=== PATIENT | male | born 1985 | race Caucasian/White ===

== ENCOUNTER 2019-08-13 02:42 | Inpatient (IN) | payer SELFPAY ==
--- NOTE | 2019-08-13 03:48 | PDOC ---
History of Present Illness - General Chief Complaint: Pain, Acute Stated Complaint: ABD PAIN Time Seen by Provider: 08/13/19 03:48 - History of Present Illness Initial Comments: HPI: 34yo M with PMH of alcohol abuse (about ten beers per day) presenting with abdominal pain since yesterday. Patient has never had pain like this before. The pain is described as "dull" and rated 10/10. He has not taken anything for his pain at home. One episode of vomiting yesterday in which he saw a small amount of red. Last bowel movement was about two hours prior to arrival and was a normal formed brown stool without blood. Has eaten spicy foods recently. Patient does not have a primary care doctor. Bath some chest pain when he woke up tonight but the pain went away on its own. No surgical history. Denies urinary symptoms. Had two beers before coming to the ED and feeling shaky like he is withdrawing. Been under significant stress lately due to concern for an ailing family member such that he has been drinking significant amounts of alcohol. No fevers, but endorses chills. PCP: none ROS: Constitutional: no fever, +chills HEENT: no throat pain, no dysphagia Cardiovascular: +chest pain, no palpitations Respiratory: no cough, no shortness of breath Gastrointestinal: +abdominal pain, +vomiting Genitourinary: no dysuria, no hematuria Musculoskeletal: no myalgia, no arthralgia Skin: no rash, no itching Neurologic: no headache, no weakness Psych: no agitation, no anxiety PE: General: Awake, alert, and fully oriented, tremulous and diaphoretic Head: No signs of trauma Eyes: EOMI, sclera anicteric ENT: Moist mucus membranes Neck: Normal ROM, supple Lungs: Lungs clear, Normal breath sounds Cardio: Regular rhythm, S1 and S2 present Abdomen: Diffusely tender to palpation with significant guarding Extremities: Normal range of motion, Distal pulses present SKIN: Warm, Dry, normal turgor Neurologic: Cranial nerves II through XII grossly intact. Normal speech ED Course/MDM: DDX including but not limited to alcoholic gastritis, pancreatitis, peptic ulcer , ACS Labs, EKG CTAP with IV contrast Morphine Zofran Fluids Pepcid CIWA 14, 2mg ativan ordered 08/13/19 03:48 EKG: rate 73, Qtc 458, NSR CBC WBC 3.9 K/mm3 (4.0-10.0) L 08/13/19 04:39 RBC 3.96 M/mm3 (4.00-5.60) L 08/13/19 04:39 Hgb 13.0 GM/dL (11.7-16.9) 08/13/19 04:39 Hct 36.8 % (35.4-49) 08/13/19 04:39 MCV 93.0 fl (80-96) 08/13/19 04:39 MCH 32.8 pg (25.7-33.7) 08/13/19 04:39 MCHC 35.2 g/dl (32.0-35.9) 08/13/19 04:39 RDW 13.4 % (11.9-15.9) 08/13/19 04:39 Plt Count 152 K/MM3 (134-434) 08/13/19 04:39 MPV 6.7 fl (7.5-11.1) L 08/13/19 04:39 Absolute Neuts (auto) 2.1 K/mm3 (1.5-8.0) 08/13/19 04:39 Neutrophils % 54.0 % (42.8-82.8) 08/13/19 04:39 Lymphocytes % 33.9 % (8-40) 08/13/19 04:39 Monocytes % 10.3 % (3.8-10.2) H 08/13/19 04:39 Eosinophils % 0.8 % (0-4.5) 08/13/19 04:39 Basophils % 1.0 % (0-2.0) 08/13/19 04:39 Nucleated RBC % 0 % (0-0) 08/13/19 04:39 No leukocytosis CMP Sodium 139 mmol/L (136-145) 08/13/19 04:39 Potassium 3.8 mmol/L (3.5-5.1) 08/13/19 04:39 Chloride 106 mmol/L (98-107) 08/13/19 04:39 Carbon Dioxide 25 mmol/L (21-32) 08/13/19 04:39 Anion Gap 8 MMOL/L (8-16) 08/13/19 04:39 BUN 5.2 mg/dL (7-18) L 08/13/19 04:39 Creatinine 0.6 mg/dL (0.55-1.3) 08/13/19 04:39 Est GFR (CKD-EPI)AfAm 149.92 08/13/19 04:39 Est GFR (CKD-EPI)NonAf 129.35 08/13/19 04:39 Random Glucose 91 mg/dL (74-106) 08/13/19 04:39 Calcium 8.1 mg/dL (8.5-10.1) L 08/13/19 04:39 Total Bilirubin 0.3 mg/dL (0.2-1) 08/13/19 04:39 AST 100 U/L (15-37) H 08/13/19 04:39 ALT 89 U/L (13-61) H 08/13/19 04:39 Alkaline Phosphatase 126 U/L (45-117) H 08/13/19 04:39 Troponin I < 0.02 ng/ml (0.00-0.05) 08/13/19 04:39 Total Protein 8.6 g/dl (6.4-8.2) H 08/13/19 04:39 Albumin 3.3 g/dl (3.4-5.0) L 08/13/19 04:39 Lipase 215 U/L (73-393) 08/13/19 04:39 Electrolyltes unremarkable Cr normal ALT and AST elevated Tpn undetectable Lipase normal 08/13/19 06:08 CT as reported by imaging lamination technician: "EXAM: CT ABDOMEN AND PELVIS WITH CONTRAST Thickened bladder wall, correlate clinically for cystitis. No bowel obstruction or inflammation. No free fluid or free air. Normal appendix. Unremarkable spleen, stomach, pancreas, kidneys and gallbladder. Steatosis liver. One or more of the following dose reduction techniques were used: automated exposure control, adjustment of the mA and/or kV according to patient size, use of iterative reconstructive technique. THIS DOCUMENT HAS BEEN ELECTRONICALLY SIGNED Graciela Castillo M.D." Patient still with significant abdominal tenderness; concern for inability to tolerate po puts patient at risk for acute withdrawal Plan for admission Patient signed out to Dr. Pemberton and day team Past History - Past Medical History Allergies/Adverse Reactions: Allergies Allergy/AdvReac Type Severity Reaction Status Date / Time No Known Allergies Allergy Verified 08/13/19 03:11 Home Medications: Ambulatory Orders Ibuprofen [Motrin -] 600 mg PO TID PRN #90 tablet 07/01/19 COPD: No - Immunization History Immunization Up to Date: Yes - Psycho Social/Smoking Cessation Hx Smoking History: Never smoked Have you smoked in the past 12 months: No Hx Alcohol Use: No Drug/Substance Use Hx: No *Physical Exam - Vital Signs Last Vital Signs Temp Pulse Resp BP Pulse Ox 98.0 F 87 16 130/90 99 08/13/19 03:11 08/13/19 03:11 08/13/19 03:11 08/13/19 03:11 08/13/19 03:11 ED Treatment Course - LABORATORY CBC & Chemistry Diagram: 08/13/19 04:39 08/13/19 04:39 Discharge - Discharge Information Problems reviewed: Yes Clinical Impression/Diagnosis: Alcoholic gastritis Qualifiers: Chronicity: acute Gastritis bleeding: presence of bleeding unspecified Qualified Code(s): K29.20 - Alcoholic gastritis without bleeding Condition: Stable - Follow up/Referral - Patient Discharge Instructions - Post Discharge Activity CIWA Nausea/Vomitin Muscle Tremors: 3 Anxiety: 0-No Anxiety, at Ease Agitation: 0-Normal Activity Paroxysmal Sweats: 3 Orientation: 0-Oriented Tacttile Disturbances: 1-Very Mild Itch/Numbness Auditory Disturbances: 0-None Visual Disturbances: 2-Mild Sensitivity Headache: 0-None Present CIWA-Ar Total Score: 14
[2019-08-13] MEDS ORDERED: SODIUM CHLORIDE 1,000 ML IV STA (04:18)
[2019-08-13] MEDS ORDERED: ONDANSETRON 4 MG/2 ML VIAL IVPUSH ONE (04:18)
[2019-08-13] MEDS ORDERED: morphine CARPU-JECT 4 MG/1 ML DISP.SYRIN IVPUSH ONE (04:18)
[2019-08-13] MEDS ORDERED: FAMOTIDINE 20 MG/50 ML IVPB 20 MG/50 ML MG IVPB ONE (04:19)
[2019-08-13] MEDS ORDERED: morphine SULFATE 4 MG/ML VIAL ONE (04:42)
--- NOTE | 2019-08-13 04:42 | PDOC ---
Attending Attestation - Resident Resident Name: Claudia Caraballo - ED Attending Attestation I have performed the following: I have examined & evaluated the patient, The case was reviewed & discussed with the resident, I agree w/resident's findings & plan - HPI HPI: 08/13/19 05:21 see resident hpi - Physicial Exam PE: 08/13/19 05:21 see resident exam - Medical Decision Making 08/13/19 05:21 34-year-old male with history of alcohol use disorder complaining of epigastric abdominal pain radiating to the lower abdomen Patient states he is also feeling shaky Labs, EKG and CT scan of the abdomen and pelvis IV fluid normal saline, Ativan 2 mg IV push for impending withdrawal with tongue fasciculations and tremor present We will plan for admission pending CT scan results
[2019-08-13] MEDS ORDERED: ONDANSETRON 4 MG/2 ML VIAL ONE (04:50)
[2019-08-13 05:01] LABS: EOS % 0.8 % (0-4.5); HEMATOCRIT 36.8 % (35.4-49); LYMPH % 33.9 % (8-40); MCH 32.8 pg (25.7-33.7); MCHC 35.2 g/dl (32.0-35.9); MEAN PLT VOLUME 6.7 fl (7.5-11.1); MONO % 10.3 % (3.8-10.2); PLATELET COUNT 152 K/MM3 (134-434); RBC 3.96 M/mm3 (4.00-5.60); RDW 13.4 % (11.9-15.9); WHITE BLOOD COUNT 3.9 K/mm3 (4.0-10.0)
[2019-08-13 05:27] LABS: ALBUMIN 3.3 g/dl (3.4-5.0); BILIRUBIN,TOTAL 0.3 mg/dL (0.2-1); BLOOD UREA NITROGEN 5.2 mg/dL (7-18); CALCIUM 8.1 mg/dL (8.5-10.1); CREATININE 0.6 mg/dL (0.55-1.3); POTASSIUM 3.8 mmol/L (3.5-5.1); TOT PROT 8.6 g/dl (6.4-8.2)
[2019-08-13] MEDS ORDERED: LORazepam 2 MG/ML SDV VIAL ONE (06:45)
--- NOTE | 2019-08-13 07:17 | PDOC ---
*Physical Exam - Vital Signs Last Vital Signs Temp Pulse Resp BP Pulse Ox 98.1 F 81 14 125/78 98 08/13/19 06:46 08/13/19 06:46 08/13/19 06:46 08/13/19 06:46 08/13/19 06:46 ED Treatment Course - LABORATORY CBC & Chemistry Diagram: 08/13/19 04:39 08/13/19 04:39 - ADDITIONAL ORDERS Additional order review: Laboratory Results 08/13/19 08/13/19 08/13/19 04:39 04:39 04:39 Sodium 139 Potassium 3.8 Chloride 106 Carbon Dioxide 25 Anion Gap 8 BUN 5.2 L Creatinine 0.6 Est GFR (CKD-EPI)AfAm 149.92 Est GFR (CKD-EPI)NonAf 129.35 Random Glucose 91 Calcium 8.1 L Total Bilirubin 0.3 AST 100 H ALT 89 H Alkaline Phosphatase 126 H Troponin I < 0.02 Total Protein 8.6 H Albumin 3.3 L Lipase 215 08/13/19 04:39 RBC 3.96 L MCV 93.0 MCHC 35.2 RDW 13.4 MPV 6.7 L Neutrophils % 54.0 Lymphocytes % 33.9 Monocytes % 10.3 H Eosinophils % 0.8 Basophils % 1.0 - Medications Given in the ED: ED Medications Discontinued Medications Generic Name Dose Route Start Last Admin Trade Name Freq PRN Reason Stop Dose Admin Sodium Chloride 1,000 mls @ 1,000 mls/hr 08/13/19 04:18 08/13/19 04:55 Normal Saline - IV 08/13/19 05:17 1,000 mls/hr ASDIR STA Administration Famotidine/Sodium Chloride 20 mg in 50 mls @ 100 mls/hr 08/13/19 04:19 04:55 Pepcid 20 Mg Premixed Ivpb - IVPB 08/13/19 04:48 100 mls/hr ONCE ONE Administration Lorazepam 2 mg 08/13/19 05:10 08/13/19 06:45 Ativan Injection - IVPUSH 08/13/19 05:11 2 mg ONCE ONE Administration Morphine Sulfate 4 mg 08/13/19 04:18 08/13/19 04:54 Morphine Injection - IVPUSH 08/13/19 04:19 4 mg ONCE ONE Administration Ondansetron HCl 4 mg 08/13/19 04:18 08/13/19 04:55 Zofran Injection IVPUSH 08/13/19 04:19 4 mg ONCE ONE Administration Medical Decision Making - Medical Decision Making 08/13/19 07:16 Sign out received from Dr. Caraballo. 34M w/hx EtOH use disorder p/w ongoing abdominal pain refractory to pain control. Plan for admission for EtOH gastritis. Pending: Admission 08/13/19 07:48 Case discussed with admitting team, patient admitted to Dr. Hamilton. Discharge - Discharge Information Problems reviewed: Yes Clinical Impression/Diagnosis: Alcoholic gastritis Qualifiers: Chronicity: acute Gastritis bleeding: presence of bleeding unspecified Qualified Code(s): K29.20 - Alcoholic gastritis without bleeding Condition: Stable - Admission Yes - Follow up/Referral - Patient Discharge Instructions - Post Discharge Activity
[2019-08-13] MEDS ORDERED: chlordiazePOXIDE HCL 10 MG CAPSULE PO PRN (08:43)
--- NOTE | 2019-08-13 08:47 | HP ---
CHIEF COMPLAINT: abdominal pain PCP:none HISTORY OF PRESENT ILLNESS: Patient is a 34 year old male with past medical history of EtOH abuse, presented to the ED due to sudden onset severe diffuse abdominal pain that started last night. Of note, patient has history chronic EtOH use, drinking 5 beers daily for at least 10 years, and has been increased to 10 beers daily in the past year. Last drink was around 2am last night, when patient suddenly experienced sudden severe 10/10 diffuse abdominal pain, worse at the RUQ/LLQ. This was accompanied by 1 episode of vomiting with blood streaks. Patient reports a lot of stressors at home that's causing him to drink more, and is currently unemployed. He denies fever, headache, dizziness, chest pain, SOB, diarrhea, urinary symptoms. Denies visual, auditory or tactile hallucinations. ER course was notable for: (1)CTAP - thickened bladder wall. No bowel obstruction or inflammation. No free fluid or free air. Normal appendix. Unremarkable spleen, stomach, pancreas, kidneys and gallbladder. Steatosis liver. (2) (3) Recent Travel:denies PAST MEDICAL HISTORY: EtOH abuse PAST SURGICAL HISTORY: none Social History: Smoking: smokes 2 sticks ppd x1 week Alcohol: drinks 10 180z beers daily in the last year, 5 beers >10 years Drugs: denies Has a , who's currently in [place] with their 4 children Family History: Mother - ESRD on HD, DM Allergies No Known Allergies Allergy (Verified 08/13/19 03:11) HOME MEDICATIONS: Home Medications Medication Instructions Recorded Ibuprofen [Motrin -] 600 mg PO TID PRN #90 tablet 07/01/19 REVIEW OF SYSTEMS CONSTITUTIONAL: Absent: fever, chills, diaphoresis, generalized weakness, malaise, loss of appetite, weight change HEENT: Absent: rhinorrhea, nasal congestion, throat pain, throat swelling, difficulty swallowing, mouth swelling, ear pain, eye pain, visual changes CARDIOVASCULAR: Absent: chest pain, syncope, palpitations, irregular heart rate, lightheadedness , peripheral edema RESPIRATORY: Absent: cough, shortness of breath, dyspnea with exertion, orthopnea, wheezing, stridor, hemoptysis GASTROINTESTINAL:abdominal pain Absent: abdominal distension, nausea, vomiting, diarrhea, constipation, melena, hematochezia GENITOURINARY: Absent: dysuria, frequency, urgency, hesitancy, hematuria, flank pain, genital pain MUSCULOSKELETAL: Absent: myalgia, arthralgia, joint swelling, back pain, neck pain SKIN: Absent: rash, itching, pallor HEMATOLOGIC/IMMUNOLOGIC: Absent: easy bleeding, easy bruising, lymphadenopathy, frequent infections ENDOCRINE: Absent: unexplained weight gain, unexplained weight loss, heat intolerance, cold intolerance NEUROLOGIC: Absent: headache, focal weakness or paresthesias, dizziness, unsteady gait, seizure, mental status changes, bladder or bowel incontinence PSYCHIATRIC: Absent: anxiety, depression, suicidal or homicidal ideation, hallucinations. PHYSICAL EXAMINATION Vital Signs - 24 hr 08/13/19 08/13/19 03:11 06:46 Temperature 98.0 F 98.1 F Pulse Rate 87 Pulse Rate [ 81 Right Radial] Respiratory 16 14 Rate Blood Pressure 130/90 Blood Pressure 125/78 [Left Arm] O2 Sat by Pulse 99 98 Oximetry (%) GENERAL: Awake, alert, and fully oriented, in no acute distress. HEAD: Normal with no signs of trauma. EYES: PERRLA, EOMI, sclera anicteric, conjunctiva clear. EARS, NOSE, THROAT: Dry mucous membranes NECK: Normal range of motion, supple. LUNGS: Breath sounds equal, clear to auscultation bilaterally. HEART: Regular rate and rhythm, normal S1 and S2 without murmur, rub or gallop. ABDOMEN: Soft, +RLQ tenderness, not distended, normoactive bowel sounds, + voluntary guarding FRIDA: prostate enlarged, smooth, nontender, no hemorrhoids or mass appreciated. No blood on examining finger. MUSCULOSKELETAL: Normal range of motion at all joints. LOWER EXTREMITIES: 2+ pulses, warm, well-perfused. No peripheral edema. +rash on L foot between 1st and 2nd digits NEUROLOGICAL: Cranial nerves II-XII intact. Normal speech. Normal gait. Motor strength 5/5 on all extremities, sensation intact. No dysmetria. PSYCHIATRIC: Cooperative. Good eye contact. Appropriate mood and affect. SKIN: Warm, dry, normal turgor. Laboratory Results - last 24 hr 08/13/19 08/13/19 08/13/19 04:39 04:39 04:39 WBC 3.9 L RBC 3.96 L Hgb 13.0 Hct 36.8 MCV 93.0 MCH 32.8 MCHC 35.2 RDW 13.4 Plt Count 152 MPV 6.7 L Absolute Neuts (auto) 2.1 Neutrophils % 54.0 Lymphocytes % 33.9 Monocytes % 10.3 H Eosinophils % 0.8 Basophils % 1.0 Nucleated RBC % 0 Sodium 139 Potassium 3.8 Chloride 106 Carbon Dioxide 25 Anion Gap 8 BUN 5.2 L Creatinine 0.6 Est GFR (CKD-EPI)AfAm 149.92 Est GFR (CKD-EPI)NonAf 129.35 Random Glucose 91 Calcium 8.1 L Total Bilirubin 0.3 AST 100 H ALT 89 H Alkaline Phosphatase 126 H Troponin I Total Protein 8.6 H Albumin 3.3 L Lipase 215 08/13/19 04:39 WBC RBC Hgb Hct MCV MCH MCHC RDW Plt Count MPV Absolute Neuts (auto) Neutrophils % Lymphocytes % Monocytes % Eosinophils % Basophils % Nucleated RBC % Sodium Potassium Chloride Carbon Dioxide Anion Gap BUN Creatinine Est GFR (CKD-EPI)AfAm Est GFR (CKD-EPI)NonAf Random Glucose Calcium Total Bilirubin AST ALT Alkaline Phosphatase Troponin I < 0.02 Total Protein Albumin Lipase ASSESSMENT/PLAN: Patient is a 34 year old male with past medical history of EtOH abuse, presented to the ED due to sudden onset severe diffuse abdominal pain that started last night. #Abdominal pain -may be gastritis in setting of etoh use -thickened gallbladder wall and bladder wall on CT scan, pending final read -UA pending -RUQ US to evaluate GB -protonix 40mg daily -compazine prn for nausea, avoid zofran QTc 458 -avoid NSAIDs #Alcohol withdrawal -CIWA 8 -will start Librium protocol -Thiamine, folic acid and multivitamins -IVF -neurochecks -fall risk #Transaminitis -likely 2/2 alcoholic hepatitis, fatty liver -hepatitis serology -will check coags -will monitor LFTs -RUQ US #Tinea pedis -clotrimazole cream bid to affected areas #FEN -Iv Ns @100cc/hr -electrolytes wnl, routine bmp monitoring -Regular diet #Prophylaxis -Lovenox 40mg sq daily #Disposition -full code -admit to med surg Visit type - Emergency Visit Emergency Visit: Yes ED Registration Date: 08/13/19 Care time: The patient presented to the Emergency Department on the above date and was hospitalized for further evaluation of their emergent condition. - New Patient This patient is new to me today: Yes Date on this admission: 08/13/19 - Critical Care Critical Care patient: No ATTENDING PHYSICIAN STATEMENT I saw and evaluated the patient. I reviewed the resident's note and discussed the case with the resident. I agree with the resident's findings and plan as documented. SUBJECTIVE: OBJECTIVE: ASSESSMENT AND PLAN:
[2019-08-13 08:54] LABS: COCAINE, UR NEGATIVE ng/ml (CUTOFF=300); METHADONE, UR NEGATIVE ng/ml (CUTOFF=300); PHENCYCLIDINE,URINE NEGATIVE ng/ml (CUTOFF=25); URINE AMPHETAMINES NEGATIVE ng/ml (CUTOFF=500); URINE BARBITURATES NEGATIVE ng/ml (CUTOFF=200); URINE BENZODIAZEPINES NEGATIVE ng/ml (CUTOFF=200)
[2019-08-13 08:56] LABS: OPIATES, URI POSITIVE ng/ml (CUTOFF=300)
--- NOTE | 2019-08-13 08:59 | PN ---
Teaching Attending Note Name of Resident: Emilie Cormier ATTENDING PHYSICIAN STATEMENT I saw and evaluated the patient. I reviewed the resident's note and discussed the case with the resident. I agree with the resident's findings and plan as documented. SUBJECTIVE: CC: abd pain HPI: 34 y/o man with h/o alcohol abuse , who presented with abd pain . pain started last night at around 1 am. at 2 he had a beer to help the pain. painis described like busning in RUQ and epigastric area. ( told dr. shah, it was generalized ) . vomited once yesterday am. no diarrhea yesterday but had 4 loose non bloody green BMs the day before. No dysuria or frequency and no pelvic discomfort with sitting. Ni fevers but he feels chills. he drinks 10 beers daily OBJECTIVE: NAd, flushed face, MMM, nl oropharynx, round equal pupils reactive to light . no facial droop. CV: RRR, no MRG Lungs: CTAB Abd: soft, Nd, TTP in RUQ, and epigastric area, neg Brush's . no rebound tenderness Ext : No edema , no erytehma on upper or lower extremities. fungal infection in L 1st interdigital web. skin : erythematous scaly patches on back, upper chest and upper extremities. EKG : sinus , QTC 458 CT images : thick wall of urinary bladder, also thick gall bladder wall . no stones. underdistended stomach ASSESSMENT AND PLAN: 34 y/o man with h/o alcohol abuse , who presented with abd pain . 1- Abd pain : ? gastritis in setting of alcohol use. has TTP i n RUQ, and gall bladder wall is thick on CT ( read is pending ). r/o acute cholecysttiis . lipase nL . - get UA as urinary bladder wall is thick - FRIDA to be performed as prostate looks enlarged - obtain US of RUQ. - start PPI - compazine for nausea. avoid zofran 2- Transaminitis: likely mild degree of alcoholic hepatitis . - check hep serology - check PT , calculate DF - monitor LFTS 3- ETOH withdrawal : - start librium - start thiamine, folate, adn MVT - give IVF - will give IV thiamine befroe feeding 4- Tinea pedis on L . - topical anti fungal 5- rash : probably Pityriasis Rosea . DVT PX: Lovenox
[2019-08-13] MEDS ORDERED: PROCHLORPERAZINE INJECTION 10 MG/2 ML VIAL IVPB PRN (09:04)
[2019-08-13] MEDS ORDERED: THIAMINE HCL 200 MG/2 ML VIAL IVPB ONE (09:15)
[2019-08-13] MEDS ORDERED: THIAMINE HCL 200 MG/2 ML VIAL ONE (09:38)
[2019-08-13] MEDS: SODIUM CHLORIDE 1,000 ML IV SCH ×2 (09:50→15:13)
[2019-08-13] MEDS: FOLIC ACID 1 MG TABLET (FP) PO SCH (09:50)
[2019-08-13] MEDS: ENOXAPARIN NA (PORCINE) 40 MG/0.4 ML DISP.SYRIN SQ SCH (09:51)
[2019-08-13] MEDS: PANTOPRAZOLE 40 MG TABLET PO SCH (09:51)
[2019-08-13] MEDS: MULTIVITAMINS (DAILY MVI) TABLET (FP) PO SCH (09:51)
[2019-08-13] MEDS: CLOTRIMAZOLE 1% CREAM 15 GM TUBE TP SCH ×2 (09:51→21:17)
[2019-08-13] MEDS ORDERED: THIAMINE HCL 100 MG TABLET (FP) PO SCH (10:00)
[2019-08-13 11:06] LABS: PH,URINE 5.5 (5.0-8.0); URINE APPEARANCE CLEAR; URINE BILIRUBIN NEGATIVE (NEGATIVE); URINE COLOR YELLOW; URINE GLUCOSE (UA) NEGATIVE (NEGATIVE); URINE KETONE NEGATIVE (NEGATIVE); URINE NITRITE NEGATIVE (NEGATIVE); URINE PROTEIN NEGATIVE (NEGATIVE); URINE UROBILINOGEN 0.2 mg/dL (0.2-1.0)
[2019-08-13 11:07] LABS: EPI CELLS 1 /HPF (0-5/HPF); URINE LEUK ESTERASE NEGATIVE (NEGATIVE); URINE RBC 1 /hpf (0-4); URINE WBC 1 /hpf (0-5)
[2019-08-13] MEDS ORDERED: chlordiazePOXIDE HCL 25 MG CAPSULE ONE (12:37)
[2019-08-13] MEDS: chlordiazePOXIDE HCL 25 MG CAPSULE PO SCH ×2 (12:50→21:16)
[2019-08-13 13:28] LABS: INR 0.98 (0.83-1.09); PROTHROMBIN TIME (PATIENT) 11.6 SEC (9.7-13.0)
[2019-08-13 13:31] LABS: ACTIVATED PTT 44.5 SECONDS (25.2-36.5)
--- NOTE | 2019-08-13 14:13 | EKG ---
Test Reason : Blood Pressure : / mmHG Vent. Rate : 073 BPM Atrial Rate : 073 BPM P-R Int : 140 ms QRS Dur : 104 ms QT Int : 416 ms P-R-T Axes : 028 051 037 degrees QTc Int : 458 ms NORMAL SINUS RHYTHM NORMAL ECG NO PREVIOUS ECGS AVAILABLE Confirmed by GOPI HERNANDEZ MD ([id number]) on 08/13/2019 2:13:00 PM Referred By: Confirmed By:GOPI HERNANDEZ MD
[2019-08-13 14:59] VITALS: BMI 27.6
[2019-08-14] MEDS: SODIUM CHLORIDE 1,000 ML IV SCH ×2 (01:29→12:32)
[2019-08-14] MEDS: chlordiazePOXIDE HCL 25 MG CAPSULE PO SCH ×3 (05:02→20:22)
[2019-08-14 08:10] LABS: BASO % 0.5 % (0-2.0); EOS % 0.2 % (0-4.5); HEMATOCRIT 39.2 % (35.4-49); HEMOGLOBIN 13.6 GM/dL (11.7-16.9); LYMPH % 15.6 % (8-40); MCH 32.3 pg (25.7-33.7); MCHC 34.7 g/dl (32.0-35.9); MEAN CELL VOLUME 92.9 fl (80-96); MEAN PLT VOLUME 7.3 fl (7.5-11.1); MONO % 9.2 % (3.8-10.2); NEUT % 74.5 % (42.8-82.8); PLATELET COUNT 134 K/MM3 (134-434); RBC 4.22 M/mm3 (4.00-5.60); RDW 13.1 % (11.9-15.9); WHITE BLOOD COUNT 4.8 K/mm3 (4.0-10.0)
[2019-08-14 08:41] LABS: BILIRUBIN,TOTAL 1.3 mg/dL (0.2-1); BLOOD UREA NITROGEN 8.8 mg/dL (7-18); CALCIUM 8.8 mg/dL (8.5-10.1); CREATININE 0.5 mg/dL (0.55-1.3); MAGNESIUM 2.2 mg/dL (1.8-2.4); PHOSPHOROUS 2.9 mg/dL (2.5-4.9); POTASSIUM 3.7 mmol/L (3.5-5.1); TOT PROT 8.2 g/dl (6.4-8.2)
[2019-08-14 09:23] LABS: BILIRUBIN,DIRECT 0.3 mg/dL (0.0-0.2)
[2019-08-14] MEDS: FOLIC ACID 1 MG TABLET (FP) PO SCH (09:29)
[2019-08-14] MEDS: ENOXAPARIN NA (PORCINE) 40 MG/0.4 ML DISP.SYRIN SQ SCH (09:30)
[2019-08-14] MEDS: THIAMINE HCL 100 MG TABLET (FP) PO SCH (09:30)
[2019-08-14] MEDS: MULTIVITAMINS (DAILY MVI) TABLET (FP) PO SCH (09:30)
[2019-08-14] MEDS: PANTOPRAZOLE 40 MG TABLET PO SCH (09:30)
[2019-08-14] MEDS: CLOTRIMAZOLE 1% CREAM 15 GM TUBE TP SCH ×2 (09:33→21:31)
--- NOTE | 2019-08-14 17:02 | PN ---
Physical Exam: SUBJECTIVE: Patient seen and examined at the bedside. Stated he is feeling better and noted that he had some "acidy" stools overnight but have resolved. Endorsed some discomfort in the LLQ. Denied cp, sob, n/v/c/d, headaches, dizziness, lightheadedness, fever, chills. OBJECTIVE: Vital Signs Period Temp Pulse Resp BP Sys/Hutchison Pulse Ox Last 24 Hr 98.2 F-99.0 F 69-79 18-20 115-139/70-90 97 GENERAL: The patient is awake, alert, and fully oriented, in no acute distress. EYES: PERRL, extraocular movements intact, conjunctiva clear. ENT: Oropharynx clear without exudates, moist mucous membranes. LUNGS: Breath sounds equal, clear to auscultation bilaterally, no wheezes, no crackles, no accessory muscle use. HEART: Regular rate and rhythm, S1, S2 without murmur, rub. ABDOMEN: Soft, mildly tender in the LLQ, nondistended, normoactive bowel sounds , no guarding, no rebound, no masses. EXTREMITIES: 2+ pulses, warm, well-perfused, no edema. NEUROLOGICAL: Cranial nerves II through XII grossly intact. 5/5 muscle strength upper and lower extremities bilaterally. Sensation intact to gross touch throughout. PSYCH: Normal mood, normal affect. SKIN: Noted pityriasis rosea lesions. Laboratory Results - last 24 hr 08/13/19 08/14/19 08/14/19 12:50 07:40 07:40 WBC 4.8 RBC 4.22 Hgb 13.6 Hct 39.2 MCV 92.9 MCH 32.3 MCHC 34.7 RDW 13.1 Plt Count 134 MPV 7.3 L Absolute Neuts (auto) 3.5 Neutrophils % 74.5 D Lymphocytes % 15.6 D Monocytes % 9.2 Eosinophils % 0.2 Basophils % 0.5 Nucleated RBC % 0 Sodium 134 L Potassium 3.7 Chloride 101 Carbon Dioxide 24 Anion Gap 9 BUN 8.8 Creatinine 0.5 L Est GFR (CKD-EPI)AfAm 161.58 Est GFR (CKD-EPI)NonAf 139.42 Random Glucose 78 Calcium 8.8 Phosphorus 2.9 Magnesium 2.2 Total Bilirubin 1.3 H Direct Bilirubin 0.3 H AST 66 H ALT 68 H Alkaline Phosphatase 128 H Total Protein 8.2 Albumin 3.0 L Hep A IgM Ab Confirm Negative Hep Bs Antigen Negative Hep B Core IgM Ab Negative Hepatitis C Ab (EIA) <0.1 Active Medications Generic Name Dose Route Start Last Admin Trade Name Freq PRN Reason Stop Dose Admin Chlordiazepoxide HCl 10 mg 08/16/19 00:00 Librium - PO 08/16/19 23:59 Q12H PRN Signs/symptoms of Withdrawal Chlordiazepoxide HCl 10 mg 08/13/19 08:43 Librium - PO 08/15/19 23:59 Q8H PRN Signs/symptoms of Withdrawal Chlordiazepoxide HCl 25 mg 08/13/19 13:00 08/14/19 12:31 Librium - PO 08/14/19 21:01 25 mg Q8H OSCAR Administration Chlordiazepoxide HCl 15 mg 08/15/19 05:00 Librium - PO 08/15/19 21:01 Q8H OSCAR Chlordiazepoxide HCl 10 mg 08/16/19 05:00 Librium - PO 08/16/19 21:01 Q8H [facility] Chlordiazepoxide HCl 10 mg 08/17/19 05:00 Librium - PO 08/17/19 05:01 ONCE ONE Clotrimazole 1 applic 08/13/19 10:00 08/14/19 09:33 Lotrimin 1% Cream - TP Not Given BID [facility] Enoxaparin Sodium 40 mg 08/13/19 10:00 08/14/19 09:30 Lovenox - SQ 40 mg DAILY [facility] Administration Folic Acid 1 mg 08/13/19 10:00 08/14/19 09:29 Folic Acid - PO 1 mg DAILY [facility] Administration Sodium Chloride 1,000 mls @ 100 mls/hr 08/13/19 09:15 08/14/19 12:32 Normal Saline - IV 100 mls/hr ASDIR [facility] Administration Multivitamins/Minerals/Vitamin C 1 tab 08/13/19 10:00 08/14/19 09:30 Tab-A-Vit - PO 1 tab DAILY [facility] Administration Pantoprazole Sodium 40 mg 08/13/19 10:00 08/14/19 09:30 Protonix - PO 40 mg DAILY [facility] Administration Prochlorperazine Edisylate 10 mg 08/13/19 09:04 Compazine Injection - IVPB Q6H PRN NAUSEA AND/OR VOMITING Thiamine HCl 100 mg 08/14/19 10:00 08/14/19 09:30 Vitamin B1 - PO 100 mg DAILY OSCAR Administration ASSESSMENT/PLAN: Roge Verdin is a 34 year old male with past medical history of EtOH abuse, admitted for sudden onset severe diffuse abdominal pain from gastritis likely secondary to alcohol abuse. Abdominal pain - likely gastritis in setting of etoh use - CT scan noting diffuse fatty infiltrate and thickened urinary bladder - UA negative. Utox positive for opiates - RUQ noting fatty liver vs hepatocellular disease, no steatosis or acute cholecystitis - Protonix 40mg daily - compazine prn for nausea, avoid zofran QTc 458 - avoid NSAIDs - will need GI outpatient f/u Alcohol withdrawal - continue Librium protocol - Thiamine, folic acid and multivitamins - neurochecks - fall risk - encouraged cessation Transaminitis - likely 2/2 alcoholic hepatitis, fatty liver, improving - hepatitis serology negative - continue monitor LFTs - RUQ US as above Tinea pedis - clotrimazole cream bid to affected areas Thickened Urinary Bladder - will need urology follow up FEN - no standing fluids - continue to monitor electrolytes and replete as necessary - Regular diet Prophylaxis - Lovenox 40mg sq daily Disposition - continue to monitor on Med-surg - full code Visit type - Emergency Visit Emergency Visit: Yes ED Registration Date: 08/13/19 Care time: The patient presented to the Emergency Department on the above date and was hospitalized for further evaluation of their emergent condition. - New Patient This patient is new to me today: Yes Date on this admission: 08/14/19 - Critical Care Critical Care patient: No
--- NOTE | 2019-08-14 19:49 | PN ---
Teaching Attending Note Name of Resident: Anjum Lang ATTENDING PHYSICIAN STATEMENT I saw and evaluated the patient. I reviewed the resident's note and discussed the case with the resident. I agree with the resident's findings and plan as documented. SUBJECTIVE: no fever or chills, No Abd pain. no N/V. feels better OBJECTIVE: NAd, flushed face ( per patient always red ) CV: RRR Lungs: CTAB Ext: no edema or erythema scaly erythematous based rash on back, upper chest, and proximal extremities A/P : 34 y/o man with h/o alcohol abuse , who presented with abd pain . 1- Abd pain: possible gastritis in setting of alcohol use. - cont PPI - f/u with GI as out pt - final read of CT and US reviewed 2- Transaminitis: likely mild degree of alcoholic hepatitis on back ground of fatty liver . - acute hep serology neg - US reviewed 3- ETOH withdrawal : - cont librium - cont thiamine, folate, and MVT - dc ivf 4- Tinea pedis on L . - topical anti fungal 5- Rash : probably Pityriasis Rosea . cont detox as inpatient
[2019-08-15] MEDS: chlordiazePOXIDE 5 MG CAPSULE PO SCH ×2 (04:29→12:28)
[2019-08-15 09:13] LABS: ALBUMIN 3.3 g/dl (3.4-5.0); BILIRUBIN,TOTAL 0.6 mg/dL (0.2-1); BLOOD UREA NITROGEN 10.8 mg/dL (7-18); CALCIUM 9.1 mg/dL (8.5-10.1); CREATININE 0.6 mg/dL (0.55-1.3); MAGNESIUM 2.1 mg/dL (1.8-2.4); POTASSIUM 3.7 mmol/L (3.5-5.1); TOT PROT 8.6 g/dl (6.4-8.2)
[2019-08-15] MEDS ORDERED: PT OWN MED DRAWER 7, Y5N ONE (09:39)
[2019-08-15] MEDS: FOLIC ACID 1 MG TABLET (FP) PO SCH (09:46)
[2019-08-15] MEDS: PANTOPRAZOLE 40 MG TABLET PO SCH (09:46)
[2019-08-15] MEDS: ENOXAPARIN NA (PORCINE) 40 MG/0.4 ML DISP.SYRIN SQ SCH (09:46)
[2019-08-15] MEDS: MULTIVITAMINS (DAILY MVI) TABLET (FP) PO SCH (09:46)
[2019-08-15] MEDS: THIAMINE HCL 100 MG TABLET (FP) PO SCH (09:46)
[2019-08-15] MEDS: CLOTRIMAZOLE 1% CREAM 15 GM TUBE TP SCH ×2 (09:47→21:09)
[2019-08-15] MEDS ORDERED: LORazepam 2 MG/ML SDV VIAL IVPUSH PRN (14:08)
--- NOTE | 2019-08-15 14:11 | PN ---
Physical Exam: SUBJECTIVE: Patient seen and examined at bedside. No complaints. Feels well and ready to go home. OBJECTIVE: Vital Signs Period Temp Pulse Resp BP Sys/Hutchison Pulse Ox Last 24 Hr 98.5 F-98.7 F 75-85 17-20 118-137/74-90 98-99 Gen: NAD HEENT: NCAT. Flushed face (chronic) Neck: supple, no jvd Cardio: rrr, normal s1s2, no mrg noted Pulm: cta b/l Abd: soft, nontender, nondistended Ext: no tremor Laboratory Results - last 24 hr 08/15/19 08:12 Sodium 134 L Potassium 3.7 Chloride 101 Carbon Dioxide 23 Anion Gap 9 BUN 10.8 Creatinine 0.6 Est GFR (CKD-EPI)AfAm 149.92 Est GFR (CKD-EPI)NonAf 129.35 Random Glucose 84 Calcium 9.1 Magnesium 2.1 Total Bilirubin 0.6 AST 123 H ALT 104 H Alkaline Phosphatase 136 H Total Protein 8.6 H Albumin 3.3 L Active Medications Generic Name Dose Route Start Last Admin Trade Name Freq PRN Reason Stop Dose Admin Chlordiazepoxide HCl 10 mg 08/16/19 00:00 Librium - PO 08/16/19 23:59 Q12H PRN Signs/symptoms of Withdrawal Chlordiazepoxide HCl 10 mg 08/13/19 08:43 Librium - PO 08/15/19 23:59 Q8H PRN Signs/symptoms of Withdrawal Chlordiazepoxide HCl 15 mg 08/15/19 05:00 08/15/19 12:28 Librium - PO 08/15/19 21:01 15 mg Q8H OSCAR Administration Chlordiazepoxide HCl 10 mg 08/16/19 05:00 Librium - PO 08/16/19 21:01 Q8H OSCAR Chlordiazepoxide HCl 10 mg 08/17/19 05:00 Librium - PO 08/17/19 05:01 ONCE ONE Clotrimazole 1 applic 08/13/19 10:00 08/15/19 09:47 Lotrimin 1% Cream - TP Not Given BID OSCAR Enoxaparin Sodium 40 mg 08/13/19 10:00 08/15/19 09:46 Lovenox - SQ 40 mg DAILY OSCAR Administration Folic Acid 1 mg 08/13/19 10:00 08/15/19 09:46 Folic Acid - PO 1 mg DAILY OSCAR Administration Multivitamins/Minerals/Vitamin C 1 tab 08/13/19 10:00 08/15/19 09:46 Tab-A-Vit - PO 1 tab DAILY OSCAR Administration Pantoprazole Sodium 40 mg 08/13/19 10:00 08/15/19 09:46 Protonix - PO 40 mg DAILY OSCAR Administration Prochlorperazine Edisylate 10 mg 08/13/19 09:04 Compazine Injection - IVPB Q6H PRN NAUSEA AND/OR VOMITING Thiamine HCl 100 mg 08/14/19 10:00 08/15/19 09:46 Vitamin B1 - PO 100 mg DAILY OSCAR Administration ASSESSMENT/PLAN: 34 year old male with past medical history of EtOH abuse, admitted for sudden onset severe diffuse abdominal pain from gastritis likely secondary to alcohol abuse. Abd Pain -likely gastritis 2/2 EtOH -CT scan noting diffuse fatty infiltrate and thickened urinary bladder -UA neg -RUQ US showing fatty liver. -will need GI outpt -pain resolved at this time Transaminitis -worse today. Will switch chlordiazepoxide to Ativan PRN - likely 2/2 alcoholic hepatitis, fatty liver, improving - hepatitis serology negative - continue monitor LFTs - RUQ US as above EtOH withdrawal - continue Librium protocol - Thiamine, folic acid and multivitamins - counselled. Pt states he had a year of sobriety in the past and is ready to get sober again Visit type - Emergency Visit Emergency Visit: No - New Patient This patient is new to me today: Yes Date on this admission: 08/15/19 - Critical Care Critical Care patient: No ATTENDING PHYSICIAN STATEMENT I saw and evaluated the patient. I reviewed the resident's note and discussed the case with the resident. I agree with the resident's findings and plan as documented. SUBJECTIVE: OBJECTIVE: ASSESSMENT AND PLAN:
[2019-08-15] MEDS ORDERED: LORazepam 1 MG TABLET PO PRN ×2 (15:51→15:57)
--- NOTE | 2019-08-15 15:56 | PN ---
Teaching Attending Note Name of Resident: Benja Kyle ATTENDING PHYSICIAN STATEMENT I saw and evaluated the patient. I reviewed the resident's note and discussed the case with the resident. I agree with the resident's findings and plan as documented. SUBJECTIVE: No fever or chills. No abd pain , nO N/V. OBJECTIVE: NAd, flushed face CV: RRR Lungs: CTAB Ext: no edema or erythema . no tremor Scaly erythematous based rash on back, upper chest, and proximal extremities A/P: 34 y/o man with h/o alcohol abuse , who presented with abd pain . 1- Abd pain: possible gastritis in setting of alcohol use. resolved - cont PPI - f/u with GI as out pt 2- Transaminitis: worse today . but still no RUQ tenderness . no elevation in bili . - change librium to ativan . - monitor 3- ETOH withdrawal : - change librium to po ativan PRN for CIWA > 9 - cont thiamine, folate, and MVT 4- Tinea pedis on L. - topical anti fungal 5- Rash: probably Pityriasis Rosea . dipo : possible tomorrow iif no signs of withdrawal and improvement of LFTS
[2019-08-16] MEDS ORDERED: chlordiazePOXIDE HCL 10 MG CAPSULE PO PRN
[2019-08-16] MEDS ORDERED: chlordiazePOXIDE HCL 10 MG CAPSULE PO SCH (05:00)
[2019-08-16 06:02] VITALS: BP 101/71; PULSE 88; TEMP 98.2
[2019-08-16] MEDS: CLOTRIMAZOLE 1% CREAM 15 GM TUBE TP SCH (09:17)
[2019-08-16] MEDS: FOLIC ACID 1 MG TABLET (FP) PO SCH (09:17)
[2019-08-16] MEDS: THIAMINE HCL 100 MG TABLET (FP) PO SCH (09:17)
[2019-08-16] MEDS: PANTOPRAZOLE 40 MG TABLET PO SCH (09:17)
[2019-08-16] MEDS: MULTIVITAMINS (DAILY MVI) TABLET (FP) PO SCH (09:17)
[2019-08-16] MEDS: ENOXAPARIN NA (PORCINE) 40 MG/0.4 ML DISP.SYRIN SQ SCH (09:17)
[2019-08-16 09:18] LABS: ALBUMIN 3.3 g/dl (3.4-5.0); BILIRUBIN,TOTAL 0.6 mg/dL (0.2-1); BLOOD UREA NITROGEN 11.1 mg/dL (7-18); CALCIUM 9.2 mg/dL (8.5-10.1); CREATININE 0.7 mg/dL (0.55-1.3); POTASSIUM 3.7 mmol/L (3.5-5.1); TOT PROT 8.9 g/dl (6.4-8.2)
--- NOTE | 2019-08-16 12:15 | PN ---
Progress Note (short form) - Note Progress Note: Subjective: No fever or chills. No ANAND , no abd pain , no constipation . No N/V . Objective: Vital Signs: Last Vital Signs Temp Pulse Resp BP Pulse Ox 98.2 F 88 18 101/71 98 08/16/19 05:57 08/16/19 05:57 08/16/19 05:57 08/16/19 05:57 08/15/19 21:00 Laboratory Results - last 24 hr 08/16/19 08:20 Sodium 137 Potassium 3.7 Chloride 104 Carbon Dioxide 24 Anion Gap 10 BUN 11.1 Creatinine 0.7 Est GFR (CKD-EPI)AfAm 140.71 Est GFR (CKD-EPI)NonAf 121.41 Random Glucose 114 H Calcium 9.2 Total Bilirubin 0.6 AST 157 H ALT 132 H Alkaline Phosphatase 135 H Total Protein 8.9 H Albumin 3.3 L Physical Exam: No fever or chills. No abd pain , no N/V. OBJECTIVE: NAD, flushed face. CV: RRR. Lungs: CTAB Ext: no edema or erythema. no tremor A/P: 34 y/o man with h/o alcohol abuse, who presented with abd pain. 1- Abd pain: possible gastritis in setting of alcohol use. - cont PPI - f/u with GI as out pt 2- Transaminitis: stabilized. librium was stopped. repeat in 1 week 3- ETOH withdrawal: resolved. did not require any ativan since yesterday 4- Tinea pedis on L. - topical anti fungal. 5- Rash: probably Pityriasis Rosea . 6- f/u with uro for thickened bladder. dc home. f/u at [facility] Visit type - Emergency Visit Emergency Visit: Yes ED Registration Date: 08/13/19 Care time: The patient presented to the Emergency Department on the above date and was hospitalized for further evaluation of their emergent condition. - New Patient This patient is new to me today: No - Critical Care Critical Care patient: No
[2019-08-17] MEDS ORDERED: chlordiazePOXIDE HCL 10 MG CAPSULE PO ONE (05:00)
--- NOTE | 2019-08-17 17:14 | DS ---
Addendum entered and electronically signed by Anjum Lang, RESIDENT 17:24: Date of discharge 08/16/19 Original Note: Physical Exam: SUBJECTIVE: Patient was discharged day prior. Refer to last progress note for subjective ROS. OBJECTIVE: PHYSICAL EXAM Refer to last progress note for most recent physical exam. HOSPITAL COURSE: Roge Verdin is a 34 year old male with past medical history of EtOH abuse, admitted for sudden onset severe diffuse abdominal pain from gastritis likely secondary to alcohol abuse. Gastritis likely in the setting of alcohol use. CT scan noted diffuse fatty infiltrate of liver and thickened urinary bladder. RUQ U/S noting fatty liver vs hepatocellular disease, no steatosis or acute cholecystitis. Was advised to follow up with gastroenterology regarding these findings. Additionally, was advised to follow up with urology for findings of thickened urinary bladder. Was started on Protonix 40mg daily. Advised not to take NSAIDS for pain. While admitted, patient was on Librium protocol for alcohol detox. Was advised to follow up with addiction medicine at [facility]. Advised to cease drinking. Started on thamine and folic acid. Patient was discharged in stable medical condition. Date of Admission:08/13/19 Date of Discharge: 08/17/19 Minutes to complete discharge: 35 Discharge Summary Problems reviewed: Yes Reason For Visit: ALCOHOL WITHDRAWAL SYNDROME,ALCOHOL GASTRITIS Condition: Improved - Instructions Diet, Activity, Other Instructions: You were admitted for stomach pain which was likely due to alcohol use. Your pain improved and you were started on a medication that will help protect your stomach lining from acid. You had an abdominal CT scan and ultrasound of your liver which showed that you have a fatty liver for which you should follow up with a color weigher (stomach, liver, intestines doctor) and that you have thickening of your bladder for which you are recommended to follow up with a urologist (urinary system doctor). MEDICATIONS DO NOT take NSAID medications such as Advil, Alleve, ibuprofen, naproxen, toradol. START to take Protonix 40mg once a day for 2 weeks. thiamine and folic acid were started REFERRALS Please follow up with [address] [place] [address] , this is a medical clinic. please call [phone], and ask to be referred to the medical clinic at [address] [place] [address]. Make an appointment in a week as you need blood work to evaluate your liver enzymes Please follow up with the color weigher, Dr. Flash Mcghee, within 2 weeks. Please follow up with the urologist, Dr. Abel Pete, within 2 weeks. Please follow up with the addiction medicine specialist, Dr. Víctor Morgan, within 1 week. SPECIAL INSTRUCTIONS Stop drinking alcohol and stopping drinking alcohol may decrease your risk of developing medical problems related to your heart, stomach, liver, brain, and other vital organs. Follow up with your primary care physician for your skin condition. If you have any symptoms of inability to eat, bloody stools, vomiting, fevers, increasing headaches, chest pain, shortness of breath, or any other general feelings of un-wellness, please call 911 or go to your nearest emergency room. you can pick your medicines tomorrow from [employer] Referrals: Joel Mcghee DO [Staff Physician] - 2 Weeks Abel Pete MD [Staff Physician] - 2 Weeks Yves Wahl MD [Non Staff, Medical] - 1 Week Víctor Morgan DO [Staff Physician] - 1 Week Disposition: HOME - Home Medications Comprehensive Discharge Medication List: Ambulatory Orders Folic Acid 1 mg PO DAILY #30 tablet 08/16/19 Pantoprazole Sodium [Protonix] 40 mg PO DAILY #14 tablet. 08/16/19 Thiamine HCl [B-1] 100 mg PO DAILY #30 tablet 08/16/19 Problem List - Problems (1) Transaminitis Code(s): R74.0 - NONSPEC ELEV OF LEVELS OF TRANSAMNS & LACTIC ACID DEHYDRGNSE (2) Alcoholic gastritis Code(s): K29.20 - ALCOHOLIC GASTRITIS WITHOUT BLEEDING Qualifiers: Chronicity: acute Gastritis bleeding: presence of bleeding unspecified Qualified Code(s): K29.20 - Alcoholic gastritis without bleeding This patient is new to me today: No Emergency Visit: Yes ED Registration Date: 08/13/19 Care time: The patient presented to the Emergency Department on the above date and was hospitalized for further evaluation of their emergent condition. Critical Care patient: No - Discharge Referral Referred to [facility] Med [facility] Yes Physician Referral: Flash Mcghee DO (GI)
== END 2019-08-16 13:45 | disposition home or self-care (01) | DRG 241 ==
LOC: JER 02:42 → JERBED 07:31 → J6S 14:22
PROVIDERS: ADMIT Internal Medicine; ATTEND Internal Medicine
PROC: HZ2ZZZZ Detoxification Services for Substance Abuse Treatment (ICD-10-PCS; principal; 2019-08-13)
DX: K29.20 Alcoholic gastritis without bleeding (principal); F10.230 Alcohol dependence with withdrawal, uncomplicated; K76.0 Fatty (change of) liver, not elsewhere classified; B35.3 Tinea pedis; K70.10 Alcoholic hepatitis without ascites; R21 Rash and other nonspecific skin eruption; R10.9 Unspecified abdominal pain
CPT/HCPCS: 36415; 74177-TC; 76705-TC; 80053; 80074; 80307; 81003; 82248; 83690; 83735; 84100; 84443; 84484; 85025; 85610; 85730; 93005; 93010; 99285-25; J7030